=== PATIENT | male | born 1945 | race Hispanic/Latino ===

== ENCOUNTER 2022-07-14 21:05 | Emergency (ER) | payer MEDICARE ==
[~2022-07-14] VITALS: Ht 172.7 cm; Wt 72.6 kg
[2022-07-14] MEDS ORDERED: PAXLOVID 300-11 EACH PO (22:46)
[2022-07-14 23:04] VITALS: BP 133/77
== END 2022-07-14 23:04 | disposition home or self-care (01) ==
LOC: FSED 21:30
DX: R05.9 Cough, unspecified (principal); U07.1 COVID-19; J20.9 Acute bronchitis, unspecified
CPT/HCPCS: 71045; 99283

== ENCOUNTER 2024-10-03 16:39 | Observation (INO) | payer MEDICARE ==
[~2024-10-03] VITALS: Ht 170.2 cm; Wt 70.5 kg
[~2024-10-03 16:39] MED LIST: PAXLOVID 300-11 EACH PO
[2024-10-03] MEDS: TRAMADOL HCL 50 MG TAB PO ONE (17:29)
[2024-10-03 18:54] VITALS: PULSE 71; RESP 18; TEMP 98.7
[2024-10-03] MEDS: KETOROLAC TROMETHAMINE 30 MG/ML VIAL IM STA (19:24)
[2024-10-03] MEDS: KETOROLAC TROMETHAMINE 60 MG/2 ML VIAL IM ONE (19:25)
[2024-10-03] MEDS ORDERED: ONDANSETRON HCL INJ 2MG/ML 2ML 2 MG/ML VIAL IV STA (19:36)
[2024-10-03] MEDS ORDERED: SODIUM CHLORIDE FLUSH 10 ML SYR INJ PRN (19:45)
[2024-10-03 19:51] LABS: BASOPHILS % 0.2 % (0.0-1.0); EOSINOPHILS # (AUTO) 0.1 (0.0-0.4); EOSINOPHILS % 0.9 % (0.0-6.0); HEMATOCRIT 38.1 % (38.2-49.6); HEMOGLOBIN 12.3 g/dL (14.0-18.0); LYMPHOCYTES % 11.9 % (18.0-39.1); MEAN CORPUSCULAR HEMOGLOBIN 32.6 pg (28-32); MEAN CORPUSCULAR HGB CONC 32.3 g/dL (31-35); MEAN CORPUSCULAR VOLUME 101.1 fL (81-99); MONOCYTES # (AUTO) 0.7 (0.2-0.8); MONOCYTES % 8.1 % (4.4-11.3); NEUTROPHILS # (AUTO) 6.4 (2.1-6.9); NEUTROPHILS % 78.7 % (38.7-80.0); PLATELET COUNT 169 x10e3/uL (140-360); RED BLOOD COUNT 3.77 x10e6/uL (4.3-5.7); RED CELL DISTRIBUTION WIDTH 13.2 % (11.7-14.4)
[2024-10-03 20:00] VITALS: BP 154/83; PULSE 63; RESP 16; TEMP 97.7; O2SAT 100
[2024-10-03] MEDS ORDERED: ONDANSETRON HCL INJ 2MG/ML 2ML 2 MG/ML VIAL IV PRN (20:00)
[2024-10-03 20:01] LABS: INR 1.02; PARTIAL THROMBOPLASTIN TIME 30.7 seconds (23.8-35.5)
[2024-10-03 20:07] LABS: ANION GAP 12.7 mmol/L (8-16); CALCIUM 9.2 mg/dL (8.4-10.2); CREATININE, SERUM 1.03 mg/dL (0.72-1.25); POTASSIUM 3.7 mmol/L (3.5-5.1)
[2024-10-03] MEDS ORDERED: PANTOPRAZOLE SO40 MG PO (20:46)
[2024-10-03] MEDS ORDERED: ATORVASTATIN CA20 MG PO (20:46)
[2024-10-03 20:47] VITALS: BP 154/83; PULSE 63; RESP 16; TEMP 97.7; O2SAT 100
[2024-10-03 21:00] VITALS: BP 154/83; PULSE 63; RESP 16; TEMP 97.7; O2SAT 100
[2024-10-03 21:11] VITALS: PULSE 64; RESP 17; O2SAT 98
[2024-10-04] VITALS (7 sets, daily range): BP systolic 113–136; BP diastolic 60–74; PULSE 56–69; RESP 16–19; TEMP 97.5–98.1; O2SAT 95–99
[2024-10-04] MEDS: Morphine 4mg INJECTION 4 MG/ML INJ IV PRN (00:59)
[2024-10-04 05:15] LABS: BASOPHILS % 0.5 % (0.0-1.0); EOSINOPHILS # (AUTO) 0.2 (0.0-0.4); EOSINOPHILS % 3.4 % (0.0-6.0); HEMATOCRIT 34.7 % (38.2-49.6); HEMOGLOBIN 11.3 g/dL (14.0-18.0); LYMPHOCYTES # (AUTO) 0.7 (1.0-3.2); LYMPHOCYTES % 15.4 % (18.0-39.1); MEAN CORPUSCULAR HGB CONC 32.6 g/dL (31-35); MEAN CORPUSCULAR VOLUME 98.3 fL (81-99); MONOCYTES # (AUTO) 0.5 (0.2-0.8); NEUTROPHILS % 68.5 % (38.7-80.0); PLATELET COUNT 149 x10e3/uL (140-360); RED BLOOD COUNT 3.53 x10e6/uL (4.3-5.7); RED CELL DISTRIBUTION WIDTH 13.4 % (11.7-14.4); WHITE BLOOD COUNT 4.35 x10e3/uL (4.8-10.8)
[2024-10-04 05:39] LABS: ANION GAP 10.9 mmol/L (8-16); CALCIUM 8.7 mg/dL (8.4-10.2); CREATININE, SERUM 1.03 mg/dL (0.72-1.25); POTASSIUM 3.9 mmol/L (3.5-5.1)
[2024-10-04] MEDS: ATORVASTATIN 20 MG TAB PO SCH (09:00)
[2024-10-04] MEDS: PANTOPRAZOLE SOD 40 MG TABEC PO SCH (10:23)
[2024-10-04] MEDS: SENNA-S TABLET PO SCH (10:24)
[2024-10-04] MEDS ORDERED: MIRALAX17 GM PO ×2 (14:08→16:28)
[2024-10-04] MEDS ORDERED: COLACE100 M1 PO (16:28)
[2024-10-04] MEDS ORDERED: ACETAMINOPHEN-1 EAC4 PO ×2 (16:28→18:49)
[2024-10-04] MEDS ORDERED: ONDANSETRON ODT4 MG PO (16:28)
[2024-10-04] MEDS ORDERED: AZITHROMYCIN250 MG PO (16:57)
[2024-10-04] MEDS ORDERED: ONDANSETRON HCL 4 MG ORAL DISINTEGRATING TAB PO PRN (17:15)
[2024-10-04] MEDS: POLYETHYLENE GLYCOL 3350 17 GM PACK PO PRN (17:44)
[2024-10-04] MEDS ORDERED: ATORVASTATIN 20 MG TAB PO SCH (21:00)
== END 2024-10-04 18:55 | disposition home or self-care (01) ==
LOC: ER 17:13 → ERHOLD 19:40 → MED/SURG 20:17
PROVIDERS: ADMIT Internal Medicine; ATTEND Internal Medicine
DX: S22.42XA Multiple fractures of ribs, left side, initial encounter for closed fracture (principal); T79.7XXA Traumatic subcutaneous emphysema, initial encounter; S27.321A Contusion of lung, unilateral, initial encounter; J94.2 Hemothorax; E78.5 Hyperlipidemia, unspecified; D64.9 Anemia, unspecified; C95.91 Leukemia, unspecified, in remission; Z92.21 Personal history of antineoplastic chemotherapy; Z92.3 Personal history of irradiation; H91.90 Unspecified hearing loss, unspecified ear; Z87.891 Personal history of nicotine dependence; W01.0XXA Fall on same level from slipping, tripping and stumbling without subsequent striking against object, initial encounter; Y92.007 Garden or yard of unspecified non-institutional (private) residence as the place of occurrence of the external cause; Z79.899 Other long term (current) drug therapy
CPT/HCPCS: 36415 ×2; 70450; 71046; 71250; 72125; 80048 ×2; 85025 ×2; 85610; 85730; 94799 ×2; 97116; 97161; 97530; 99284; G0378 ×2; J1885; J2270; S0164